=== PATIENT | female | born 1955 | race Caucasian/White ===

== ENCOUNTER 2018-02-14 15:16 | Inpatient (IN) | payer BC, OTHER ==
[2018-02-14] MEDS ORDERED: ONDANSETRON HCL INJ/PF 4 MG/2 ML SDV IV ONE (15:54)
[2018-02-14] MEDS ORDERED: NORMAL SALINE 1000 ML 1,000 ML IV ONE ×2 (15:54→17:02)
--- NOTE | 2018-02-14 15:57 | ER Document Report ---
ED Medical Screen (RME) - General Chief Complaint: Nausea/Vomiting/Diarrhea Stated Complaint: FLU LIKE SYMPTOMS Time Seen by Provider: 02/14/18 15:46 Information source: Patient Notes: 62 y.o female presents to the ED with N/V/D, chills and sweats since 02/09/18. She notes abd pain when vomiting. Pt also complains of CP and palpitations, bilateral flank pain. She denies any dysuria or blood in stool. Pt reports taking Imodium. I have greeted and performed a rapid initial assessment of the patient. A comprehensive ED assessment and evaluation of the patient, analysis of test results, and completion of the medical decision making process will be conducted by additional ED providers. TRAVEL OUTSIDE OF THE [place] IN LAST 30 DAYS: No - Related Data Allergies/Adverse Reactions: ciprofloxacin Adverse Reaction (Severe, Verified 02/14/18 15:38) GI upset meperidine [From Demerol] Adverse Reaction (Intermediate, Verified 02/14/18 15: 37) Dystonia Past Medical History - General Information source: Patient - Social History Chew tobacco use (# tins/day): No Frequency of alcohol use: Social Drug Abuse: None Renal/ Medical History: Denies: Hx Peritoneal Dialysis Review of Systems - Review of Systems Constitutional: See HPI, Chills, Diaphoresis Cardiovascular: See HPI, Chest pain, Palpitations Gastrointestinal: See HPI, Abdominal pain, Diarrhea, Nausea, Vomiting. denies: Blood streaked bowels, Black stools, Rectal bleeding Genitourinary: See HPI, Flank pain. denies: Dysuria Physical Exam - Vital signs Vitals: Temp Pulse Resp BP Pulse Ox 98.2 F 134 H 20 147/95 H 96 02/14/18 15:28 02/14/18 15:28 02/14/18 15:28 02/14/18 15:28 02/14/18 15:28 - Notes Notes: Physical Exam: General: Alert, appears well. HEENT: Normocephalic. Atraumatic. PERRLA. Extraocular movements intact. Oropharynx clear. Dry mucus membrane. Neck: Supple. Respiratory: No respiratory distress. Cardiovascular: Tachycardic rate, regular rhythm. Abdominal: Normal Inspection. No distension. Extremities: Moves all four extremities. Neurological: Normal cognition. AAOx4. Normal speech. Psychological: Normal affect. Normal Mood. Skin: Warm. Dry. Normal color. Course - Vital Signs Vital signs: Temp Pulse Resp BP Pulse Ox 98.2 F 134 H 20 147/95 H 96 02/14/18 15:28 02/14/18 15:28 02/14/18 15:28 02/14/18 15:28 02/14/18 15:28 Scribe Documentation - Scribe Written by Scribe:: Shadi Simons 02/14/18 [id number] acting as scribe for :: Alex
--- NOTE | 2018-02-14 16:27 | ER Document Report ---
ED General - General Chief Complaint: Nausea/Vomiting/Diarrhea Stated Complaint: FLU LIKE SYMPTOMS Time Seen by Provider: 02/14/18 15:46 Mode of Arrival: Ambulatory Information source: Patient Notes: 62 yo female lives alone with HTN, hyperlipedemia, quit smoking 10 years ago, non dm, IBS, anxiety. Reason she came today bc she thought she was going to , "my heart hurts" (left chest) intermittent for hour or 2- it is constant sharp , no aggrevating or alleviating for 2 days and "kidney's are hurting." c/o vomiting, diarrhea, chills, sweats, generalized aches, no energy since friday night. Black diarrhea, no hematemesis. No cough or congestion. Fever off and on. No dysuria, only urinated 3 times since friday. no asa or meds since last friday. No abd. pain. Abd. surgery: john, 3 bladder tacks. took kaopectate ( can turn stools black). Diverticula found on colonoscopy-6 weeks ago (dr. zoraida toth). No hx c diff. Drinks 3-4 beers per night. Pt has not taken her meds all week. TRAVEL OUTSIDE OF THE [place] IN LAST 30 DAYS: No - Related Data Allergies/Adverse Reactions: ciprofloxacin Adverse Reaction (Severe, Verified 02/14/18 15:38) GI upset meperidine [From Demerol] Adverse Reaction (Intermediate, Verified 02/14/18 15: 37) Dystonia Past Medical History - General Information source: Patient - Social History Smoking Status: Former Smoker Chew tobacco use (# tins/day): No Frequency of alcohol use: Social Drug Abuse: None Lives with: Family Family History: DM, Hypertension Patient has suicidal ideation: No Patient has homicidal ideation: No - Past Medical History Cardiac Medical History: Reports: Hx Hypercholesterolemia, Hx Hypertension Renal/ Medical History: Denies: Hx Peritoneal Dialysis GI Medical History: Reports: Hx Diverticulitis - diverticula Review of Systems - Review of Systems Constitutional: See HPI EENT: No symptoms reported Cardiovascular: See HPI Respiratory: No symptoms reported Gastrointestinal: See HPI Genitourinary: No symptoms reported Female Genitourinary: No symptoms reported Musculoskeletal: See HPI Skin: No symptoms reported Hematologic/Lymphatic: No symptoms reported Neurological/Psychological: No symptoms reported Physical Exam - Vital signs Vitals: Temp Pulse Resp BP Pulse Ox 98.2 F 134 H 20 147/95 H 96 02/14/18 15:28 02/14/18 15:28 02/14/18 15:28 02/14/18 15:28 02/14/18 15:28 Interpretation: Normal - General General appearance: Alert, Anxious - HEENT Head: Normocephalic, Atraumatic Eyes: Normal Conjunctiva: Normal Pupils: PERRL Mucous membranes: Dry Neck: Supple. No: Lymphadenopathy - Respiratory Respiratory status: No respiratory distress Chest status: Tender - right and left mid anterior chest Breath sounds: Normal, Other - occasional cough. Chest palpation: Normal - Cardiovascular Rhythm: Regular Heart sounds: Normal auscultation Murmur: No - Abdominal Inspection: Normal Distension: No distension Bowel sounds: Normal Tenderness: Tender - low abdomen all the way across Organomegaly: No organomegaly - Back Back: Normal, Nontender. No: CVA tenderness - Extremities General upper extremity: Normal inspection, Nontender, Normal color, Normal ROM , Normal temperature General lower extremity: Normal inspection, Nontender, Normal color, Normal ROM , Normal temperature, Normal weight bearing. No: Hugo's sign - Neurological Neuro grossly intact: Yes Cognition: Normal Orientation: AAOx4 Archie Coma Scale Eye Opening: Spontaneous Archie Coma Scale Verbal: Oriented Archie Coma Scale Motor: Obeys Commands [place] Coma Scale Total: 15 Speech: Normal Motor strength normal: LUE, RUE, LLE, RLE Sensory: Normal - Psychological Associated symptoms: Normal affect, Normal mood - Skin Skin Temperature: Warm Skin Moisture: Dry Skin Color: Normal Course - Re-evaluation Re-evalutation: 02/14/18 17:02 cipro gives her heartburn. 02/14/18 19:13 Patient is drinking joe marry and eating crackers. She no longer has chest pain or abdominal pain. Her abdomen CT was negative for inflammation or diverticulitis. Her troponin was negative. I discussed this case with Dr. elbert Bernabe RN states that with the original EKG of sinus tachycardia at the rate of [address] depression in aVL, V1 V3 V4 V5 and that her heart score is 5. I will be repeating EKG and getting another troponin. Dr. boswell states that the patient needs to be admitted. 02/14/18 19:[address] Mcmillan for admission and he states that he will admit her for telemetry observation if the second troponin is negative. I will transfer care to [facility] family nurse practitioner. Add TSH and give lopressor 5mg IV. 02/14/18 19:24 02/14/18 19:40 care transferred to [facility] at the bedside. She is stating that she has dull left chest pain 2/5, will add NTG. 02/14/18 19:42 2nd EKG still shows depressed T waves as the first but not as sever. Dr. bynum evaluated the 2 ekg's. - Vital Signs Vital signs: Temp Pulse Resp BP Pulse Ox 98.2 F 134 H 18 150/68 H 98 02/14/18 15:28 02/14/18 15:28 02/14/18 17:30 02/14/18 17:30 02/14/18 17:30 - Laboratory Result Diagrams: 02/14/18 16:12 02/14/18 16:12 Laboratory results interpreted by me: 02/14/18 02/14/18 02/14/18 16:12 16:12 17:08 Hgb 16.2 H Sodium 135.9 L Chloride 97 L Glucose 127 H Direct Bilirubin 0.6 H AST 114 H ALT 109 H Urine Protein >=500 H Urine Ketones 20 H Urine Urobilinogen 2.0 H
[2018-02-14 16:31] LABS: ABSOLUTE LYMPHOCYTES (AUTO) 0.9 10^3/uL (0.5-4.7); ABSOLUTE MONOCYTES (AUTO) 0.6 10^3/uL (0.1-1.4); BASOPHILS % (AUTO) 0.3 % (0-2); EOSINOPHILS % (AUTO) 0.1 % (0-6); HEMATOCRIT 45.6 % (36.0-47.0); HEMOGLOBIN 16.2 g/dL (12.0-15.5); MEAN CORPUSCULAR HEMOGLOBIN 32.6 pg (27.0-33.4); MEAN CORPUSCULAR HGB CONC 35.4 g/dL (32.0-36.0); MEAN CORPUSCULAR VOLUME 92 fl (80-97); MONOCYTES % (AUTO) 11.1 % (3-13); PLATELET COUNT 157 10^3/uL (150-450); RED BLOOD COUNT 4.97 10^6/uL (3.72-5.28); RED CELL DISTRIBUTION WIDTH 12.3 % (11.5-14.0); SEGMENTED NEUTROPHILS % (AUTO) 71.5 % (42-78); TOTAL CELLS COUNTED % (AUTO) 100 %; WHITE BLOOD COUNT 5.6 10^3/uL (4.0-10.5)
[2018-02-14] MEDS ORDERED: ASPIRIN 81 MG TABLET, CHEWABLE PO ONE (16:50)
[2018-02-14 17:07] LABS: ALANINE AMINOTRANSFERASE 109 U/L (9-52); ALBUMIN 4.8 g/dL (3.5-5.0); ALKALINE PHOSPHATASE 92 U/L (38-126); ANION GAP 17 (5-19); ASPARTATE AMINO TRANSFERASE 114 U/L (14-36); BILIRUBIN,DIRECT 0.6 mg/dL (0.0-0.4); BILIRUBIN,TOTAL 0.8 mg/dL (0.2-1.3); BLOOD UREA NITROGEN 18 mg/dL (7-20); CALCIUM 9.8 mg/dL (8.4-10.2); CARBON DIOXIDE 22 mmol/L (22-30); CHLORIDE 97 mmol/L (98-107); GLUCOSE 127 mg/dL (75-110); LIPASE 195.3 U/L (23-300); POTASSIUM 3.7 mmol/L (3.6-5.0); SODIUM 135.9 mmol/L (137-145)
[2018-02-14 17:36] LABS: APPEARANCE,URINE SLIGHTLY-CLOUDY; BILIRUBIN,URINE NEGATIVE (NEGATIVE); COLOR,URINE AMBER; GLUCOSE, URINE NEGATIVE (NEGATIVE); KETONES,URINE 20 mg/dL (NEGATIVE); LEUKOCYTE ESTERASE,URINE NEGATIVE (NEGATIVE); NITRITE,URINE NEGATIVE (NEGATIVE); PROTEIN,URINE >=500 mg/dL (NEGATIVE); URINE SPECIFIC GRAVITY 1.024
--- NOTE | 2018-02-14 17:39 | RADIOLOGY REPORT (SQ) ---
EXAM DESCRIPTION: CHEST SINGLE VIEW COMPLETED DATE/TIME: 02/14/2018 5:27 pm REASON FOR STUDY: fever, chest pain COMPARISON: None. NUMBER OF VIEWS: One view. TECHNIQUE: Single frontal radiographic view of the chest acquired. LIMITATIONS: None. FINDINGS: LUNGS AND PLEURA: No opacities, masses or pneumothorax. No pleural effusion. Attenuated bl ood vessels and flattened corinna-diaphragms. MEDIASTINUM AND HILAR STRUCTURES: No masses. Contour normal. HEART AND VASCULAR STRUCTURES: Heart normal in size. Normal vasculature. BONES: No acute findings. HARDWARE: None in the chest. OTHER: No other significant finding. IMPRESSION: COPD. NO ACUTE RADIOGRAPHIC FINDING IN THE CHEST. TECHNICAL DOCUMENTATION: JOB ID: [id number] [employer]- All Rights Reserved Reading location - IP/workstation name: [email or web address]
--- NOTE | 2018-02-14 18:07 | RADIOLOGY REPORT (SQ) ---
EXAM DESCRIPTION: CT ABD/PELVIS WITH IV ONLY COMPLETED DATE/TIME: 02/14/2018 5:45 pm REASON FOR STUDY: low abd tenderness COMPARISON: None. TECHNIQUE: CT scan of the abdomen and pelvis performed using helical scanning technique with dynamic intravenous contrast injection. No oral contrast. Images reviewed with lung, soft tissue, and bone windows. Reconstructed coronal and sagittal MPR images reviewed. Delayed images for evaluation of the urinary system also acquired. All images stored on PACS. All CT scanners at this facility use dose modulation, iterative reconstruction, and/or weight based d osing when appropriate to reduce radiation dose to as low as reasonably achievable (ALARA). [facility]: Dose Right [facility]: CareDose [facility]: Dose Right [facility]: Teradose 4D [facility]: [employer] CONTRAST TYPE AND DOSE: contrast/concentration: Isovue 370.00 mg/ml; Total Contrast Delivered: 80.0 ml; Total Saline Delivered: 68.0 ml RENAL FUNCTION: Creatinine 0.60 RADIATION DOSE: CT Rad equipment meets quality standard of care and radiation dose reduction techniq ues were employed. CTDIvol: 10.1 - 14.5 mGy. DLP: 1260 mGy-cm.. LIMITATIONS: None. FINDINGS: LOWER CHEST: No significant findings. No nodules or infiltrates. LIVER: There is diffuse decreased attenuation, most consistent with fatty infiltration. No masses. N o dilated ducts. SPLEEN: Normal size. No focal lesions. PANCREAS: No significant calcifications. No adjacent inflammation or peripancreatic fluid collections . Pancreatic duct not dilated. GALLBLADDER: Surgically absent. ADRENAL GLANDS: No significant masses or asymmetry. RIGHT KIDNEY AND URETER: No solid masses. Nonobstructing 3 mm calculus at the right kidney. No hy dronephrosis or hydroureter. LEFT KIDNEY AND URETER: No solid masses. No significant calcifications. No hydronephrosis or hydr oureter. AORTA AND VESSELS: No abdominal aortic aneurysm. RETROPERITONEUM: No retroperitoneal adenopathy, hemorrhage or masses. BOWEL AND PERITONEAL CAVITY: No dilated bowel loops or inflammatory changes. No free fluid or free ai r. APPENDIX: Surgically absent. PELVIS: No mass. No free fluid. The urinary bladder is partially distended. ABDOMINAL WALL: No hernias. BONES: Degenerative changes in the spine. IMPRESSION: 1. No acute findings. 2. Fatty infiltration of the liver. 3. Nonobstructing right nephrolithiasis. TECHNICAL DOCUMENTATION: JOB ID: [id number] [facility] Quality ID # [id number]: Final reports with documentation of one or more dose reduction techniques (e.g., Au tomated exposure control, adjustment of the mA and/or kV according to patient size, use of iterative reconstruction technique) 2010 [employer]- All Rights Reserved Reading location - IP/workstation name: [email or web address]
[2018-02-14] MEDS ORDERED: METOPROLOL TARTRATE PF/INJ 5 MG/5 ML SDV IV ONE (19:24)
[2018-02-14] MEDS ORDERED: NITROGLYCERIN 0.4 MG/TAB 25 TAB/BOTTLE SL PRN ×2 (19:42→20:42)
[2018-02-14] MEDS ORDERED: ESCITALOPRAM OXALATE 10 MG TABLET PO ONE (19:48)
[2018-02-14] MEDS ORDERED: ACETAMINOPHEN 325 MG TABLET PO ONE (20:28)
[2018-02-14] MEDS ORDERED: NITROGLYCERIN 2% OINTMENT 1 GM PACKET TP ONE (20:28)
[2018-02-14] MEDS ORDERED: DIPHENOXYLATE HCL/ATROP SULF 2.5-0.025 MG TABLET PO ONE (20:54)
[2018-02-14] MEDS ORDERED: ESCITALOPRAM OXALATE 10 MG TABLET ONE (21:09)
[2018-02-14] MEDS ORDERED: ATENOLOL 50 MG TABLET PO SCH (22:00)
[2018-02-14] MEDS: DICYCLOMINE HCL 20 MG TABLET PO PRN (22:02)
[2018-02-14] MEDS: HEPARIN SOD (PORCINE) 5,000 UNIT/ML 1 ML SYRINGE SUBCUT SCH (22:03)
--- NOTE | 2018-02-14 23:50 | EKG REPORT ---
SEVERITY:- ABNORMAL ECG - SINUS OR ECTOPIC ATRIAL TACHYCARDIA NONSPECIFIC REPOL ABNORMALITY, DIFFUSE LEADS BORDERLINE PROLONGED QT INTERVAL : Confirmed by: Garrick Paul MD 14-Feb-2018 23:50:26
--- NOTE | 2018-02-14 23:52 | EKG REPORT ---
SEVERITY:- ABNORMAL ECG - SINUS OR ECTOPIC ATRIAL TACHYCARDIA REPOL ABNRM SUGGESTS ISCHEMIA, DIFFUSE LEADS MINIMAL ST ELEVATION, INFERIOR LEADS CLINICAL CORRELATION MUCH NEEDED, SERIAL EKG TO ASSESS SIGNIFICANCE. : Confirmed by: Garrick Paul MD 14-Feb-2018 23:51:58
--- NOTE | 2018-02-15 06:06 | PDOC H&P ---
History of Present Illness Admission Date/PCP: 02/14/18 20:51 Patient complains of: Chest pain History of Present Illness: YVROSE CHAN is a 62 year old female with a past medical history of anxiety, irritable bowel syndrome, hypertension and dyslipidemia. Patient following 1 week of nausea vomiting of gastric content, diarrhea without blood and fatigue. Patient denies suspect meals or infectious contacts, no episodes of either while in the emergency room. Patient has an unremarkable workup then reveals left-sided chest pain which is reproducible to palpation of the chest wall, cardiac workup is unremarkable but she is referred to the hospitalist for evaluation given cardiac risks. Patient states her chest pain is dull in nature and reproduced by rubbing the chest wall, no palpitations, diaphoresis or shortness of breath. It is achy in nature and nonradiating with a 2 out of 5 intensity. Patient denies alleviating factors. She denies cardiac stress testing. Past Medical History Cardiac Medical History: Reports: Hyperlipidema, Hypertension GI Medical History: Reports: Diverticulitis - diverticula Social History Information Source: Patient Lives with: Family Smoking Status: Former Smoker Frequency of Alcohol Use: None Hx Recreational Drug Use: No - Advance Directive Resuscitation Status: Full Code Family History Family History: DM, Hypertension, Malignancy - Mother and father with lung cancer Parental Family History Reviewed: Yes Children Family History Reviewed: Yes Sibling(s) Family History Reviewed.: Yes Medication/Allergy Home Medications: Aspirin [Aspirin EC] 81 mg PO DAILY 02/14/18 Atenolol [Tenormin] 25 mg PO DAILY 02/14/18 Atorvastatin Calcium [Lipitor 10 mg Tablet] 10 mg PO DAILY 02/14/18 Escitalopram Oxalate [Lexapro 10 mg Tablet] 10 mg PO DAILY 02/14/18 Esomeprazole Mag Trihydrate [Nexium] 40 mg PO BID 02/14/18 Hyoscyamine Sulfate [Hyoscyamine Sulfate ER] 2 tab PO DAILY 02/14/18 Multivit with Iron,Minerals [Spectravite Senior] 1 tab PO DAILY 02/14/18 Prochlorperazine Maleate [Compazine] 10 - 20 mg PO DAILY PRN 02/14/18 Vit C/Vit E AC/Lut/Copper/Zinc [Preservision Lutein Softgel] 1 cap PO DAILY Allergies/Adverse Reactions: ciprofloxacin Adverse Reaction (Severe, Verified 02/14/18 15:38) GI upset meperidine [From Demerol] Adverse Reaction (Intermediate, Verified 02/14/18 15: 37) Dystonia Review of Systems Constitutional: PRESENT: as per HPI, anorexia, fatigue. ABSENT: fever(s) Eyes: ABSENT: visual disturbances Ears: ABSENT: hearing changes Cardiovascular: ABSENT: chest pain, dyspnea on exertion, edema, orthropnea, palpitations Respiratory: ABSENT: cough, hemoptysis Gastrointestinal: PRESENT: as per HPI, bloating, constipation, diarrhea, heartburn, nausea, vomiting Genitourinary: ABSENT: dysuria, hematuria Musculoskeletal: ABSENT: joint swelling Integumentary: ABSENT: rash, wounds Neurological: ABSENT: abnormal gait, abnormal speech, confusion, dizziness, focal weakness, syncope Psychiatric: ABSENT: anxiety, depression, homidical ideation, suicidal ideation Endocrine: ABSENT: cold intolerance, heat intolerance, polydipsia, polyuria Hematologic/Lymphatic: ABSENT: easy bleeding, easy bruising Physical Exam Vital Signs: Temp Pulse Resp BP Pulse Ox 98.6 F 134 H 17 109/51 L 95 02/15/18 05:49 02/14/18 15:28 02/15/18 05:00 02/15/18 05:00 02/15/18 05:00 General appearance: PRESENT: no acute distress, well-developed, well-nourished Head exam: PRESENT: atraumatic, normocephalic Eye exam: PRESENT: conjunctiva pink, EOMI, PERRLA. ABSENT: scleral icterus Ear exam: PRESENT: normal external ear exam Mouth exam: PRESENT: moist, tongue midline Neck exam: ABSENT: carotid bruit, JVD, lymphadenopathy, thyromegaly Respiratory exam: PRESENT: clear to auscultation caroline. ABSENT: rales, rhonchi, wheezes Cardiovascular exam: PRESENT: RRR. ABSENT: diastolic murmur, rubs, systolic murmur Pulses: PRESENT: normal dorsalis pedis pul Vascular exam: PRESENT: normal capillary refill GI/Abdominal exam: PRESENT: normal bowel sounds, soft. ABSENT: distended, guarding, mass, organolmegaly, rebound, tenderness Rectal exam: PRESENT: deferred Extremities exam: PRESENT: full ROM. ABSENT: calf tenderness, clubbing, pedal edema Neurological exam: PRESENT: alert, awake, oriented to person, oriented to place , oriented to time, oriented to situation, CN II-XII grossly intact. ABSENT: motor sensory deficit Psychiatric exam: PRESENT: appropriate affect, normal mood. ABSENT: homicidal ideation, suicidal ideation Skin exam: PRESENT: dry, intact, warm. ABSENT: cyanosis, rash Results Impressions: Chest X-Ray 02/14/18 16:43 IMPRESSION: COPD. NO ACUTE RADIOGRAPHIC FINDING IN THE CHEST. Abdomen/Pelvis CT 02/14/18 16:56 IMPRESSION: 1. No acute findings. 2. Fatty infiltration of the liver. 3. Nonobstructing right nephrolithiasis. Assessment & Plan - Diagnosis (1) Gastroenteritis Is this a current diagnosis for this admission?: Yes Plan: Labs are unremarkable symptoms have subsided, symptomatic and supportive measures (2) Atypical chest pain Is this a current diagnosis for this admission?: Yes Plan: Atypical chest pain though the patient's pain is atypical there are multiple risk factors for coronary artery disease and subsequently will observe and evaluation of acute coronary syndrome versus coronary artery disease with anginal equivalents. Cardiac monitoring blood pressure Q6 hours ,TSH, lipid profile, serial cardiac enzymes and cardiac stress test - Time Time Spent: 30 to 50 Minutes
[2018-02-15] MEDS: HEPARIN SOD (PORCINE) 5,000 UNIT/ML 1 ML SYRINGE SUBCUT SCH ×3 (06:39→21:35)
[2018-02-15 06:58] LABS: CREATINE KINASE MB 0.25 ng/mL (<4.55); TROPONIN I 0.022 ng/mL
[2018-02-15 07:22] LABS: CHOLESTEROL 115.41 mg/dL (0-200); CREATINE KINASE 66 U/L (30-135); TRIGLYCERIDES 93 mg/dL (<150)
[2018-02-15 07:32] LABS: DIRECT LDL 63 mg/dL (<100)
--- NOTE | 2018-02-15 09:14 | PROGRESS NOTE E ---
Progress Note NAME: YVROSE CHAN : 1955 AGE: 62Y DATE: 02/15/2018 ROOM: ED06 SUBJECTIVE: The patient is a 62-year-old with a past medical history of anxiety, irritable bowel syndrome, hypertension, dyslipidemia. The patient admitted with nausea, vomiting, diarrhea. She had multiple bowel movements yesterday around 4:00 by loose stool. She vomited 3 or 4 times. She does not have any fever or chills. No abdominal pain. She had a CT scan of abdomen which was unremarkable. There is no fever. No leukocytosis. OBJECTIVE: The patient when she came also blood pressure was running low and she received 2 boluses of normal saline. When I saw her today her blood pressure is 120/60. PHYSICAL EXAMINATION: GENERAL: The patient is lying in bed, comfortable, not in distress. VITAL SIGNS: Blood pressure is 120/60, heart rate 78, temperature 98.6, saturation is 94%, respiratory rate 20. HEENT: Normocephalic, atraumatic. Pupils are round and reactive to light and accommodation bilaterally. Extraocular movements intact. Ears: Tympanic membranes intact bilaterally. No discharge from the ears. No discharge from the nose. NECK: Supple. No increased JVD. No thyromegaly. No lymphadenopathy. CARDIOVASCULAR: Normal S1 and S2. Regular rate and rhythm. No murmur. No gallop. RESPIRATORY: Lungs clear. ABDOMEN: Soft and nontender. MUSCULOSKELETAL: No edema. NEUROLOGIC: Awake, alert. SKIN: No rash. LABORATORY: White blood count 5.6, hemoglobin 16. Sodium 136, potassium 3.7, carbon dioxide 22. ASSESSMENT: 1. NAUSEA, VOMITING, DIARRHEA PROBABLY GASTROENTERITIS. 2. ATYPICAL CHEST PAIN. 3. HYPERTENSION AND ANXIETY. 4. HISTORY OF IRRITABLE BOWEL SYNDROME. 5. DYSLIPIDEMIA. 6. HYPOTENSION, RESOLVED. PLAN: Will continue fluid resuscitation with normal saline 100 mL per hour. Will start her on clear liquid diet. Send the stool for analysis. DISPOSITION: Probably discharge home tomorrow if stable. She also had chest pain and the patient waiting for stress test to be done tomorrow. DICTATING PHYSICIAN: HEIDE BABB M.D. [id number] [facility]#: [id number] ID: [id number] JOB#: [id number] ACCT: [id number] cc: > MTDD
[2018-02-15] MEDS: ATENOLOL 50 MG TABLET PO SCH (09:32)
[2018-02-15] MEDS: ESCITALOPRAM OXALATE 10 MG TABLET PO SCH (09:33)
[2018-02-15] MEDS: LANSOPRAZOLE 30 MG TAB.RAP.DR PO SCH ×2 (09:33→20:24)
[2018-02-15] MEDS: DOCUSATE SODIUM 100 MG CAPSULE PO SCH ×2 (09:34→20:25)
[2018-02-15] MEDS: ASPIRIN 81 MG TABLET, ENT COATED PO SCH (09:34)
[2018-02-15] MEDS: DICYCLOMINE HCL 20 MG TABLET PO PRN ×2 (09:34→20:25)
[2018-02-15] MEDS ORDERED: ASPIRIN 81 MG TABLET, ENT COATED PO SCH (10:00)
[2018-02-15] MEDS: NORMAL SALINE 1000 ML 1,000 ML IV PRN ×2 (11:52→21:42)
[2018-02-15] MEDS: ATORVASTATIN CALCIUM 10 MG TABLET PO SCH (21:34)
[2018-02-15] MEDS: ACETAMINOPHEN 325 MG TABLET PO PRN (21:35)
[2018-02-16] MEDS: HEPARIN SOD (PORCINE) 5,000 UNIT/ML 1 ML SYRINGE SUBCUT SCH ×3 (06:55→22:32)
[2018-02-16 07:27] LABS: ABSOLUTE LYMPHOCYTES (AUTO) 1.3 10^3/uL (0.5-4.7); ABSOLUTE MONOCYTES (AUTO) 0.4 10^3/uL (0.1-1.4); ABSOLUTE NEUT (AUTO) 1.7 10^3/uL (1.7-8.2); BASOPHILS % (AUTO) 0.6 % (0-2); HEMATOCRIT 32.3 % (36.0-47.0); LYMPHOCYTES % (AUTO) 38.5 % (13-45); MEAN CORPUSCULAR HEMOGLOBIN 32.3 pg (27.0-33.4); MEAN CORPUSCULAR HGB CONC 35.1 g/dL (32.0-36.0); MEAN CORPUSCULAR VOLUME 92 fl (80-97); MONOCYTES % (AUTO) 11.2 % (3-13); PLATELET COUNT 106 10^3/uL (150-450); RED BLOOD COUNT 3.52 10^6/uL (3.72-5.28); RED CELL DISTRIBUTION WIDTH 12.2 % (11.5-14.0); SEGMENTED NEUTROPHILS % (AUTO) 49.7 % (42-78); TOTAL CELLS COUNTED % (AUTO) 100 %; WHITE BLOOD COUNT 3.5 10^3/uL (4.0-10.5)
[2018-02-16 07:41] LABS: ANION GAP 8 (5-19); BLOOD UREA NITROGEN 6 mg/dL (7-20); CALCIUM 7.9 mg/dL (8.4-10.2); CARBON DIOXIDE 26 mmol/L (22-30); CHLORIDE 106 mmol/L (98-107); GLUCOSE 92 mg/dL (75-110); HEMOGLOBIN 11.4 g/dL (12.0-15.5); SODIUM 139.5 mmol/L (137-145)
[2018-02-16 08:12] LABS: POTASSIUM 2.9 mmol/L (3.6-5.0)
[2018-02-16] MEDS ORDERED: POTASSIUM CHLORIDE 20 MEQ/15 ML UDCUP PO ONE (08:15)
[2018-02-16] MEDS ORDERED: POTASSIUM CHLORIDE 10 MEQ TABLET.SA PO ONE (09:00)
[2018-02-16] MEDS: ASPIRIN 81 MG TABLET, ENT COATED PO SCH (09:36)
[2018-02-16] MEDS: ACETAMINOPHEN 325 MG TABLET PO PRN (09:36)
[2018-02-16] MEDS: ESCITALOPRAM OXALATE 10 MG TABLET PO SCH (09:37)
[2018-02-16] MEDS: LANSOPRAZOLE 30 MG TAB.RAP.DR PO SCH ×2 (09:37→17:23)
[2018-02-16] MEDS: DOCUSATE SODIUM 100 MG CAPSULE PO SCH (09:43)
[2018-02-16] MEDS: ATENOLOL 50 MG TABLET PO SCH (11:32)
--- NOTE | 2018-02-16 18:03 | PDOC PROGRESS REPORT ---
Subjective Progress Note for:: 02/16/18 Subjective:: YVROSE CHAN is a 62 year old female admitted for nausea and vomiting and diarrhea. Patient reports she was experiencing diarrhea for approximately 1 week prior to admission, she presented to the emergency department when she began developing vomiting. CT of the abdomen unremarkable. Patient seen this morning on rounds, she denies abdominal pain, fever or chills. She states she has not had an episode of vomiting in 2 days. She endorses multiple loose liquid stools, approximately 4-6 per day. Reason For Visit: CHEST PAIN HTN TACHYCARDIA ANXIETY IBS Physical Exam Vital Signs: Temp Pulse Resp BP Pulse Ox 98.2 F 70 16 124/63 98 02/16/18 15:51 02/16/18 15:51 02/16/18 15:51 02/16/18 15:51 02/16/18 15:51 Intake & Output 02/15/18 02/16/18 02/17/18 06:59 06:59 06:59 Intake Total 175 768 Output Total 50 Balance 175 718 Weight 79.5 kg General appearance: PRESENT: no acute distress Head exam: PRESENT: atraumatic Eye exam: PRESENT: conjunctiva pink Mouth exam: PRESENT: moist Neck exam: PRESENT: full ROM Respiratory exam: PRESENT: clear to auscultation caroline, symmetrical, unlabored Cardiovascular exam: PRESENT: +S1, +S2 Pulses: PRESENT: normal radial pulses, normal dorsalis pedis pul GI/Abdominal exam: PRESENT: normal bowel sounds, soft. ABSENT: tenderness Rectal exam: PRESENT: deferred Extremities exam: PRESENT: full ROM Musculoskeletal exam: PRESENT: full ROM Neurological exam: PRESENT: alert, awake, oriented to person, oriented to place , oriented to time, oriented to situation Psychiatric exam: PRESENT: appropriate affect Results Laboratory Results: 02/16/18 06:39 02/16/18 06:39 02/16/18 02/16/18 06:39 06:39 WBC 3.5 L RBC 3.52 L Hgb 11.4 L D Hct 32.3 L MCV 92 MCH 32.3 MCHC 35.1 RDW 12.2 Plt Count 106 L Seg Neutrophils % 49.7 Lymphocytes % 38.5 Monocytes % 11.2 Eosinophils % 0.0 Basophils % 0.6 Absolute Neutrophils 1.7 Absolute Lymphocytes 1.3 Absolute Monocytes 0.4 Absolute Eosinophils 0.0 Absolute Basophils 0.0 Sodium 139.5 Potassium 2.9 L* Chloride 106 Carbon Dioxide 26 Anion Gap 8 BUN 6 L Creatinine 0.44 L Est GFR ( Amer) > 60 Est GFR (Non-Af Amer) > 60 Glucose 92 Calcium 7.9 L 02/15/18 02/15/18 05:48 05:48 Creatine Kinase 66 CK-MB (CK-2) 0.25 Troponin I 0.022 Impressions: Chest X-Ray 02/14/18 16:43 IMPRESSION: COPD. NO ACUTE RADIOGRAPHIC FINDING IN THE CHEST. Abdomen/Pelvis CT 02/14/18 16:56 IMPRESSION: 1. No acute findings. 2. Fatty infiltration of the liver. 3. Nonobstructing right nephrolithiasis. Assessment & Plan - Diagnosis (1) Gastroenteritis Is this a current diagnosis for this admission?: Yes Plan: Patient presented with approximately 1 week of nausea vomiting diarrhea. At this time, the nausea and vomiting has resolved. However, the patient endorses 4-6 episodes of liquid stool per day. Hemoccult negative. C. difficile negative. Rare WBC found in stool - benign finding. Patient denies taking any new medications. Denies ill contacts. CT abdomen and pelvis benign. Continue supportive care with normal saline 100ml/hr Advance clear liquid diet. (2) Atypical chest pain Is this a current diagnosis for this admission?: Yes Plan: Patient reported experiencing chest pain upon arrival. EKG normal. Serial cardiac enzymes benign. Patient was chest pain-free for greater than 24 hours, however, began experiencing chest pain again while undergoing her stress test today. Cardiology has been consulted. Stress test rescheduled for tomorrow. Echocardiogram ordered. Continue aspirin therapy. PRN SL Nitro for chest pain - Time Time Spent with patient: 15-24 minutes Smoking Cessation Education: 3 to 10 minutes Anticipated discharge: Home Within: within 24 hours, within 48 hours - Inpatient Certification Based on my medical assessment, after consideration of the patient's comorbidities, presenting symptoms, or acuity I expect that the services needed warrant INPATIENT care.: Yes I certify that my determination is in accordance with my understanding of Medicare's requirements for reasonable and necessary INPATIENT services [42 CFR 412.3e].: Yes Medical Necessity: Need For IV Fluids, Risk of Complication if Not Cared For in Hospital - Plan Summary Plan Summary: Ultimately, the plan is to discharge the patient within 24-48 hours
[2018-02-16] MEDS: ATORVASTATIN CALCIUM 10 MG TABLET PO SCH (22:32)
[2018-02-17] MEDS: HEPARIN SOD (PORCINE) 5,000 UNIT/ML 1 ML SYRINGE SUBCUT SCH ×3 (05:53→21:27)
[2018-02-17 09:07] LABS: ABSOLUTE LYMPHOCYTES (AUTO) 1.3 10^3/uL (0.5-4.7); ABSOLUTE MONOCYTES (AUTO) 0.5 10^3/uL (0.1-1.4); ABSOLUTE NEUT (AUTO) 3.5 10^3/uL (1.7-8.2); BASOPHILS % (AUTO) 0.5 % (0-2); HEMATOCRIT 34.4 % (36.0-47.0); LYMPHOCYTES % (AUTO) 23.9 % (13-45); MEAN CORPUSCULAR HGB CONC 34.9 g/dL (32.0-36.0); MEAN CORPUSCULAR VOLUME 92 fl (80-97); MONOCYTES % (AUTO) 9.1 % (3-13); PLATELET COUNT 157 10^3/uL (150-450); RED BLOOD COUNT 3.75 10^6/uL (3.72-5.28); RED CELL DISTRIBUTION WIDTH 11.9 % (11.5-14.0); SEGMENTED NEUTROPHILS % (AUTO) 66.5 % (42-78); TOTAL CELLS COUNTED % (AUTO) 100 %; WHITE BLOOD COUNT 5.2 10^3/uL (4.0-10.5)
[2018-02-17 09:25] LABS: ANION GAP 10 (5-19); BLOOD UREA NITROGEN 3 mg/dL (7-20); CALCIUM 8.3 mg/dL (8.4-10.2); CARBON DIOXIDE 25 mmol/L (22-30); CHLORIDE 104 mmol/L (98-107); GLUCOSE 90 mg/dL (75-110); PHOSPHORUS 2.7 mg/dL (2.5-4.5); SODIUM 138.9 mmol/L (137-145)
--- NOTE | 2018-02-17 09:25 | PDOC CONSULTATION ---
Consultation Consult Date: 02/16/18 Attending physician:: KATARZYNA JONES Consult reason:: Palpitations, shortness of breath History of Present Illness Admission Date/PCP: 02/14/18 20:51 Patient complains of: Palpitations and shortness of breath History of Present Illness: YVROSE CHAN is a 62 year old female with a past medical history of anxiety, irritable bowel syndrome, hypertension and dyslipidemia. Patient following 1 week of nausea vomiting of gastric content, diarrhea without blood and fatigue. Patient denies suspect meals or infectious contacts, no episodes of either while in the emergency room. Patient has an unremarkable workup then reveals left-sided chest pain which is reproducible to palpation of the chest wall, cardiac workup is unremarkable but she is referred to the hospitalist for evaluation given cardiac risks. Patient states her chest pain is dull in nature and reproduced by rubbing the chest wall, no palpitations, diaphoresis or shortness of breath. It is achy in nature and nonradiating with a 2 out of 5 intensity. Patient denies alleviating factors. She denies cardiac stress testing. This history was reviewed and confirmed. Patient denies any exertional component to the chest pain. Patient did complain of having significant nausea and vomiting. Patient denied any prior history of heart problems, myocardial infarction, angina or congestive heart failure. Patient did have some troponin I drawn which were noted to be in the indeterminate range. I was therefore asked to evaluate patient. Past Medical History Cardiac Medical History: Reports: Hyperlipidema, Hypertension GI Medical History: Reports: Diverticulitis - diverticula Social History Information Source: Patient Lives with: Family Smoking Status: Former Smoker Frequency of Alcohol Use: Social Hx Recreational Drug Use: No Drugs: None Hx Prescription Drug Abuse: No - Advance Directive Resuscitation Status: Full Code Family History Family History: DM, Hypertension, Malignancy - Mother and father with lung cancer Parental Family History Reviewed: Yes Children Family History Reviewed: Yes Sibling(s) Family History Reviewed.: Yes Medication/Allergy Home Medications: Aspirin [Aspirin EC] 81 mg PO DAILY 02/14/18 Atenolol [Tenormin] 25 mg PO DAILY 02/14/18 Atorvastatin Calcium [Lipitor 10 mg Tablet] 10 mg PO DAILY 02/14/18 Escitalopram Oxalate [Lexapro 10 mg Tablet] 10 mg PO DAILY 02/14/18 Hyoscyamine Sulfate [Hyoscyamine Sulfate ER] 0.75 mg PO DAILY 02/14/18 Multivit with Iron,Minerals [Spectravite Senior] 1 tab PO DAILY 02/14/18 Prochlorperazine Maleate [Compazine] 20 mg PO DAILYP PRN 02/14/18 Vit C/Vit E AC/Lut/Copper/Zinc [Preservision Lutein Softgel] 1 cap PO DAILY Allergies/Adverse Reactions: ciprofloxacin Adverse Reaction (Severe, Verified 02/14/18 15:38) GI upset meperidine [From Demerol] Adverse Reaction (Intermediate, Verified 02/14/18 15: 37) Dystonia Review of Systems Review of Systems: Please see history of present illness and past medical history as wall. Constitutional: No fever or chills reported. Head : No recent chronic headaches, recent head injury. Eyes: No recent eye pain, diplopia, redness, discharge, acute visual changes. Ears: No recent chronic ear pain, acute hearing loss, ear discharge. Oral cavity: No recent ulcerations, bleeding, oral cavity discomfort. Neck: No recent acute neck pain reported. Hematologic: No recent easy bruising or bleeding or hematologic malignancy reported. Lymphatic: No recent lymphatic malignancy, chronic lymphadenopathy reported yet Cardiovascular system review: See history of present illness. Respiratory system review: No recent chronic cough, hemoptysis, blood clots in the lungs reported. Mild Shortness of breath on exertion Gastrointestinal system review: History of irritable bowel syndrome, occasional diarrhea, constipation, nausea vomiting etc. but denies hematemesis, melena, recent change in bowel habits. Genitourinary system review: No recent acute or chronic hematuria, flank pain, UTI etc. reported. Skin system review: Negative for any recent abnormal bruising, no rash, no pruritus reported. Neurologic: No prior history of strokes, mini strokes, seizure disorder. Psychologic: No history of major psychosis or major depression reported. Musculoskeletal: Minor aches and pains reported. No acute joint swelling reported. Endocrine: No recent polyuria, polydipsia, recent heat or cold intolerance. Physical Exam Vital Signs: Temp Pulse Resp BP Pulse Ox 98.2 F 94 16 124/63 98 02/16/18 15:51 02/16/18 19:00 02/16/18 15:51 02/16/18 15:51 02/16/18 15:51 Intake & Output 02/15/18 02/16/18 02/17/18 06:59 06:59 06:59 Intake Total 175 1250 Output Total 50 Balance 175 1200 Weight 79.5 kg Exam: GENERAL: well-nourished and in no acute distress. Alert and oriented x3 HEAD: Atraumatic, normocephalic. EYES: Pupils equal round and reactive to light, extraocular movements intact, sclera anicteric, conjunctiva are normal. ENT: TMs normal, nares patent, oropharynx clear without exudates. Moist mucous membranes. No oral ulcerations or bleeding gums noted NECK: supple without lymphadenopathy. Trachea is central. No cervical or axillary lymphadenopathy noted. Carotids are 2+, JVD WNL LUNGS: Respiration seems nonlabored, no significant accessory muscle action noted. Breath sounds clear to auscultation bilaterally and equal noted. No wheezes rales or rhonchi noted. No significant dullness noted on percussion. CHEST: Palpation of the chest wall shows no significant chest wall tenderness. No other significant abnormalities noted. HEART: [employer], No PSH, 1/6 WADE aortic area, 1/6 singh systolic murmur mitral area, no rubs, no gallops. ABDOMEN: Soft, no significant tenderness appreciated, normoactive bowel sounds. No guarding, no rebound. No rigidity noted . No masses appreciated. EXTREMITIES: Pedal pulses are 1-2+, no calf tenderness noted. No clubbing or cyanosis.trace to 1+ pedal edema noted NEUROLOGICAL: Focused neurological exam showed no significant neurologic deficit. Normal speech, no focal weakness appreciated. PSYCH: Normal mood, normal affect. Judgment and insight within normal limits. SKIN: No significant ecchymosis, skin is noted to be warm. MUSCULOSKELETAL EXAM: No significant acute joint swelling noted. Results Laboratory Results: 02/16/18 06:39 02/16/18 06:39 02/16/18 02/16/18 06:39 06:39 WBC 3.5 L RBC 3.52 L Hgb 11.4 L D Hct 32.3 L MCV 92 MCH 32.3 MCHC 35.1 RDW 12.2 Plt Count 106 L Seg Neutrophils % 49.7 Lymphocytes % 38.5 Monocytes % 11.2 Eosinophils % 0.0 Basophils % 0.6 Absolute Neutrophils 1.7 Absolute Lymphocytes 1.3 Absolute Monocytes 0.4 Absolute Eosinophils 0.0 Absolute Basophils 0.0 Sodium 139.5 Potassium 2.9 L* Chloride 106 Carbon Dioxide 26 Anion Gap 8 BUN 6 L Creatinine 0.44 L Est GFR ( Amer) > 60 Est GFR (Non-Af Amer) > 60 Glucose 92 Calcium 7.9 L 02/15/18 02/15/18 05:48 05:48 Creatine Kinase 66 CK-MB (CK-2) 0.25 Troponin I 0.022 EKG Comments: Admission EKG showed sinus tachycardia with ST-T wave changes, LVH versus ischemia versus rate related. Impressions: Chest X-Ray 02/14/18 16:43 IMPRESSION: COPD. NO ACUTE RADIOGRAPHIC FINDING IN THE CHEST. Abdomen/Pelvis CT 02/14/18 16:56 IMPRESSION: 1. No acute findings. 2. Fatty infiltration of the liver. 3. Nonobstructing right nephrolithiasis. Assessment & Plan - Diagnosis (1) Chest pain Qualifiers: Chest pain type: unspecified Qualified Code(s): R07.9 - Chest pain, unspecified Is this a current diagnosis for this admission?: Yes (2) Elevated troponin Is this a current diagnosis for this admission?: Yes (3) HTN (hypertension) Qualifiers: Hypertension type: essential hypertension Qualified Code(s): I10 - Essential (primary) hypertension Is this a current diagnosis for this admission?: Yes (4) HLD (hyperlipidemia) Is this a current diagnosis for this admission?: Yes (5) GERD (gastroesophageal reflux disease) Qualifiers: Esophagitis presence: esophagitis presence not specified Qualified Code(s) : K21.9 - Gastro-esophageal reflux disease without esophagitis Is this a current diagnosis for this admission?: Yes (6) IBS (irritable bowel syndrome) Qualifiers: Irritable bowel syndrome type: with diarrhea Qualified Code(s): K58.0 - Irritable bowel syndrome with diarrhea Is this a current diagnosis for this admission?: Yes - Notes Notes: NST and ECHOCARDIOGRAM Chest pain: Patient has indeterminate troponin I. Patient does have risk factors of hypertension, hyperlipidemia and is also elderly. There is at least intermediate probability that she may have underlying CAD. Agree with nuclear stress test being scheduled. A 2D echocardiogram will also be ordered. So far continue current management plans. Troponin I elevation: These are in the intermediate range. Patient did have minor EKG changes on admission. Evaluate this further with his stress test and 2D echocardiogram. Dyslipidemia: Continue statin therapy. Gastroesophageal reflux: This is in the differential diagnosis for chest pain. Continue with proton pump inhibitor. Irritable bowel syndrome. Patient being treated for this condition. Patient to report any further problems. - Time Time Spent: 30 to 50 Minutes - CODE STATUS was discussed, patient remains full code. Multiple medical problems were addressed. More than 50% of the time spent coordinating care, discussing management plans with involved caregivers. Management plans discussed with involved personnels. Medical decision making was of moderate to high complexity, patient's has multiple comorbidities. Medications reviewed and adjusted accordingly: Yes
--- NOTE | 2018-02-17 09:33 | EKG REPORT ---
SEVERITY:- NORMAL ECG - SINUS RHYTHM : Confirmed by: Héctor Chaudhari 17-Feb-2018 09:31:44
[2018-02-17] MEDS: ESCITALOPRAM OXALATE 10 MG TABLET PO SCH (10:03)
[2018-02-17] MEDS: ATENOLOL 50 MG TABLET PO SCH (10:03)
[2018-02-17] MEDS: ASPIRIN 81 MG TABLET, ENT COATED PO SCH (10:03)
[2018-02-17] MEDS: LANSOPRAZOLE 30 MG TAB.RAP.DR PO SCH ×2 (10:03→17:33)
[2018-02-17] MEDS ORDERED: POTASSI CL 20 MEQ/50 ML RIDER 20 MEQ/50 ML RTUPB IV ONE (10:30)
[2018-02-17] MEDS ORDERED: POTASSIUM CHLORIDE 10 MEQ TABLET.SA PO ONE (10:30)
--- NOTE | 2018-02-17 12:41 | DRAGON STRESS TEST REPORT ---
INTRAVENOUS LEXISCAN CARDIOLITE STRESS TEST USING SINGLE PHOTON EMMISION COMPUTERIZED TOMOGRAPHIC. DATE OF PROCEDURE: February 17, 2018, INDICATION : Chest pain CARDIAC RISK FACTORS: Hypertension, dyslipidemia RESTING EKG: Sinus rhythm, no baseline ST-T wave changes noted STRESS EKG: No significant ST segment changes noted with LexiScan bolus REASON FOR TERMINATION: Protocol. PROCEDURE REPORT: Baseline heart rate 79 beats per minute with blood pressure of 154/84. Patient had no significant complaints. Patient was bolused with Lexiscan 0.4 mg intravenously followed by saline bolus. Heart rate at 2 minutes post bolus 101 with a blood pressure of 184/70. 3 minutes post bolus heart rate 113 with blood pressure of 180/81. No significant EKG changes were noted. Patient had no significant complaints during the procedure or postprocedure. Patient injected with Aminophyllin 75 mg at 3 minutes or later after Lexiscan bolus. CONCLUSIONS: Normal EKG and hemodynamic response to IV LexiScan. NUCLEAR DATA: At rest the patient was given 11.83 millicuries of technetium 99 sestamibi injected intravenously. As per protocol rest gated SPECT images were obtained. On day of stress test, the patient was given intravenous LexiScan at a dose of 0.4 mg in 5 mL intravenously, followed by flush with normal saline. Subsequently the stress dose of 31.8 millicuries of technetium 99 sestamibi was injected intravenously. As per protocol stress gated images were obtained. NUCLEAR INTERPRETATION: Both raw and processed data were used for interpretation. Visual, qualitative, computer-generated quantitative data was used. There was good myocardial uptake of technetium compound. Motion artifact and soft tissue attenuations were noted. Increased visceral uptake was noted. No definitive areas of transient perfusion defect noted, No definitive areas of fixed perfusion defect or scars noted. EKG gated imaging showed LV EF at 66 %, rest and stress gated EF similar visually. T. I D. ratio was 0.96. Lung heart ratio noted to be within normal limits 0.25. No significant extracardiac and abnormal radiotracer activities were noted. RV free wall uptake was noted to be WNL. IMPRESSION: Also refer to comments under nuclear interpretation. Also test results needs to be interpreted in the context of pretest probability. 1. No definitive areas of transient perfusion defect noted. 2. There is no definitive scintigraphic evidence of myocardial infarction/scar. 3. EKG gated imaging shows left ventricular ejection fraction of approx. 66 %. 4. Clinical correlation requested as occasionally single vessel disease or balanced ischemia could be missed. In approximately 10% of the cases Lexiscan may not cause adequate vasodilatory stress. RECOMMENDATIONS: Aggressive risk factor modification and medical management. Further evaluation may be needed if continued symptoms or other high risk indicators are noted on clinical evaluation. Close cardiology follow-up is also recommended. Clinical correlation with echocardiogram derived ejection fraction. Inability to exercise by itself can lead to increased cardiovascular event risks. Consider cardiology consultation and or follow-up if clinically indicated. I am available for cardiology evaluation and consultation if requested by the quality assurance assistant, unless patient already has a activities coordinator. HERBIE
[2018-02-17 14:27] LABS: APPEARANCE,URINE CLEAR; BILIRUBIN,URINE NEGATIVE (NEGATIVE); COLOR,URINE YELLOW; GLUCOSE, URINE NEGATIVE (NEGATIVE); KETONES,URINE NEGATIVE (NEGATIVE); LEUKOCYTE ESTERASE,URINE TRACE (NEGATIVE); NITRITE,URINE NEGATIVE (NEGATIVE); PROTEIN,URINE NEGATIVE (NEGATIVE); URINE SPECIFIC GRAVITY 1.008; UROBILINOGEN,URINE NEGATIVE mg/dL (<2.0)
[2018-02-17] MEDS ORDERED: REGADENOSON INJ 0.4 MG/5 ML DISP.SYRIN IV ONE (14:31)
[2018-02-17] MEDS ORDERED: AMINOPHYLLINE INJ/PF 250 MG/10 ML SDV IV ONE (14:31)
--- NOTE | 2018-02-17 18:48 | PDOC PROGRESS REPORT ---
Subjective Progress Note for:: 02/17/18 Subjective:: YVROSE CHAN is a 62 year old female admitted for nausea and vomiting and diarrhea. Patient reports she was experiencing diarrhea for approximately 1 week prior to admission, she presented to the emergency department when she began developing vomiting. CT of the abdomen unremarkable. Patient seen this morning on rounds, she denies abdominal pain, fever or chills. She endorses multiple loose liquid stools, approximately 4-6 per day. Reason For Visit: CHEST PAIN HTN TACHYCARDIA ANXIETY IBS Physical Exam Vital Signs: Temp Pulse Resp BP Pulse Ox 98.1 F 81 16 141/69 H 96 02/17/18 16:04 02/17/18 16:04 02/17/18 16:04 02/17/18 16:04 02/17/18 16:04 Intake & Output 02/16/18 02/17/18 02/18/18 06:59 06:59 06:59 Intake Total 175 2524 1269 Output Total 50 200 Balance 175 2474 1069 Weight 79.5 kg 79.5 kg General appearance: PRESENT: no acute distress Head exam: PRESENT: atraumatic Eye exam: PRESENT: conjunctiva pink Mouth exam: PRESENT: moist Respiratory exam: PRESENT: clear to auscultation caroline, symmetrical, unlabored Cardiovascular exam: PRESENT: +S1, +S2 Pulses: PRESENT: normal radial pulses, normal dorsalis pedis pul GI/Abdominal exam: PRESENT: normal bowel sounds, soft. ABSENT: tenderness Rectal exam: PRESENT: deferred Extremities exam: PRESENT: full ROM Musculoskeletal exam: PRESENT: ambulatory, full ROM Neurological exam: PRESENT: alert, awake, oriented to person, oriented to place , oriented to time, oriented to situation Psychiatric exam: PRESENT: appropriate affect Skin exam: PRESENT: normal color Results Laboratory Results: 02/17/18 08:38 02/17/18 08:38 02/17/18 02/17/18 02/17/18 08:38 08:38 12:15 WBC 5.2 RBC 3.75 Hgb 12.0 Hct 34.4 L MCV 92 MCH 32.0 MCHC 34.9 RDW 11.9 Plt Count 157 Seg Neutrophils % 66.5 Lymphocytes % 23.9 Monocytes % 9.1 Eosinophils % 0.0 Basophils % 0.5 Absolute Neutrophils 3.5 Absolute Lymphocytes 1.3 Absolute Monocytes 0.5 Absolute Eosinophils 0.0 Absolute Basophils 0.0 Sodium 138.9 Potassium 3.0 L* Chloride 104 Carbon Dioxide 25 Anion Gap 10 BUN 3 L Creatinine 0.42 L Est GFR ( Amer) > 60 Est GFR (Non-Af Amer) > 60 Glucose 90 Calcium 8.3 L Phosphorus 2.7 Magnesium 1.6 Urine Color YELLOW Urine Appearance CLEAR Urine pH 7.0 Ur Specific [place] 1.008 Urine Protein NEGATIVE Urine Glucose (UA) NEGATIVE Urine Ketones NEGATIVE Urine Blood NEGATIVE Urine Nitrite NEGATIVE Ur Leukocyte Esterase TRACE H Urine WBC (Auto) 20 Urine RBC (Auto) 7 02/15/18 02/15/18 05:48 05:48 Creatine Kinase 66 CK-MB (CK-2) 0.25 Troponin I 0.022 Impressions: Chest X-Ray 02/14/18 16:43 IMPRESSION: COPD. NO ACUTE RADIOGRAPHIC FINDING IN THE CHEST. Abdomen/Pelvis CT 02/14/18 16:56 IMPRESSION: 1. No acute findings. 2. Fatty infiltration of the liver. 3. Nonobstructing right nephrolithiasis. Status: Imported from PACS Assessment & Plan - Diagnosis (1) Gastroenteritis Is this a current diagnosis for this admission?: Yes Plan: Patient presented with approximately 1 week of nausea vomiting diarrhea. At this time, the nausea and vomiting has resolved. However, the patient endorses 4-6 episodes of liquid stool per day. Hemoccult negative. C. difficile negative. Rare WBC found in stool - benign finding. I do not believe that this case of diarrhea is caused by a foodborne contamination - such as e.coli, given the persistent nature of the diarrhea. It is possible that this patient has norovirus. Re-sent stool sample today. Patient denies taking any new medications. Denies ill contacts. CT abdomen and pelvis benign. Continue supportive care with normal saline 100ml/hr Advance clear liquid diet. (2) Atypical chest pain Is this a current diagnosis for this admission?: Yes Plan: Patient reported experiencing chest pain upon arrival. EKG normal. Serial cardiac enzymes benign. Patient was chest pain-free for greater than 24 hours, however, began experiencing chest pain again while undergoing her stress test yesterday. Cardiology has been consulted. Stress test completed today without complication - no abnormalities. Continue aspirin therapy. PRN SL Nitro for chest pain - Time Time Spent with patient: 15-24 minutes Anticipated discharge: Home Within: within 24 hours - Inpatient Certification Based on my medical assessment, after consideration of the patient's comorbidities, presenting symptoms, or acuity I expect that the services needed warrant INPATIENT care.: Yes I certify that my determination is in accordance with my understanding of Medicare's requirements for reasonable and necessary INPATIENT services [42 CFR 412.3e].: Yes Medical Necessity: Need For IV Fluids, Risk of Complication if Not Cared For in Hospital - Plan Summary Plan Summary: Ultimately, the plan is to discharge the patient home
[2018-02-17] MEDS: ACETAMINOPHEN 325 MG TABLET PO PRN (21:31)
[2018-02-17] MEDS: ATORVASTATIN CALCIUM 10 MG TABLET PO SCH (21:31)
[2018-02-17] MEDS: PHENAZOPYRIDINE HCL 100 MG TABLET PO SCH (21:57)
[2018-02-18] MEDS: NORMAL SALINE 1000 ML 1,000 ML IV PRN (03:15)
[2018-02-18] MEDS: HEPARIN SOD (PORCINE) 5,000 UNIT/ML 1 ML SYRINGE SUBCUT SCH ×2 (05:03→13:32)
[2018-02-18] MEDS: PHENAZOPYRIDINE HCL 100 MG TABLET PO SCH ×2 (05:29→13:32)
[2018-02-18] MEDS: ACETAMINOPHEN 325 MG TABLET PO PRN (08:43)
[2018-02-18] MEDS: ESCITALOPRAM OXALATE 10 MG TABLET PO SCH (10:25)
[2018-02-18] MEDS: ATENOLOL 50 MG TABLET PO SCH (10:25)
[2018-02-18] MEDS: ASPIRIN 81 MG TABLET, ENT COATED PO SCH (10:25)
[2018-02-18] MEDS: LANSOPRAZOLE 30 MG TAB.RAP.DR PO SCH (10:25)
[2018-02-18 11:26] LABS: ANION GAP 9 (5-19); BLOOD UREA NITROGEN 5 mg/dL (7-20); CARBON DIOXIDE 29 mmol/L (22-30); CHLORIDE 103 mmol/L (98-107); GLUCOSE 97 mg/dL (75-110); POTASSIUM 3.4 mmol/L (3.6-5.0); SODIUM 141.4 mmol/L (137-145)
[2018-02-18] MEDS ORDERED: POTASSIUM CHLORIDE 20 MEQ/15 ML UDCUP PO ONE (12:29)
--- NOTE | 2018-02-18 12:39 | PDOC PROGRESS REPORT ---
Subjective Progress Note for:: 02/17/18 Subjective:: Patient seems to be doing better. No recurrence of chest pain. Pt is denying any chest arm or neck discomfort. Patient denying any PND, orthopnea. Patient denied any sustained palpitations, dizziness, syncope, near syncope. Patient denying any fever chills. Patient denying any other significant discomfort. Patient is maintaining sinus rhythm. Nuclear stress test procedure explained to the patient in detail. Risk benefits were discussed. Review of systems: Rest review of systems negative. Medications: Medications have been reviewed. Reason For Visit: CHEST PAIN HTN TACHYCARDIA ANXIETY IBS Physical Exam Vital Signs: Temp Pulse Resp BP Pulse Ox 98.1 F 81 16 141/69 H 96 02/17/18 16:04 02/17/18 16:04 02/17/18 16:04 02/17/18 16:04 02/17/18 16:04 Intake & Output 02/16/18 02/17/18 02/18/18 06:59 06:59 06:59 Intake Total 175 2524 1269 Output Total 50 200 Balance 175 2474 1069 Weight 79.5 kg 79.5 kg Exam: GENERAL: well-nourished and in no acute distress. Alert and oriented x3 HEAD: Atraumatic, normocephalic. EYES: Pupils equal round and reactive to light, extraocular movements intact, sclera anicteric, conjunctiva are normal. ENT: TMs normal, nares patent, oropharynx clear without exudates. Moist mucous membranes. No oral ulcerations or bleeding gums noted NECK: supple without lymphadenopathy. Trachea is central. No cervical or axillary lymphadenopathy noted. Carotids are 2+, JVD WNL LUNGS: Respiration seems nonlabored, no significant accessory muscle action noted. Breath sounds clear to auscultation bilaterally and equal noted. No wheezes rales or rhonchi noted. No significant dullness noted on percussion. CHEST: Palpation of the chest wall shows no significant chest wall tenderness. No other significant abnormalities noted. 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 ABDOMEN: Soft, no significant tenderness appreciated, normoactive bowel sounds. No guarding, no rebound. No rigidity noted . No masses appreciated. EXTREMITIES: Pedal pulses are 1-2+, no calf tenderness noted. No clubbing or cyanosis.trace to 1+ pedal edema noted NEUROLOGICAL: Focused neurological exam showed no significant neurologic deficit. Normal speech, no focal weakness appreciated. PSYCH: Normal mood, normal affect. Judgment and insight within normal limits. SKIN: No significant ecchymosis, skin is noted to be warm. MUSCULOSKELETAL EXAM: No significant acute joint swelling noted. Results Laboratory Results: 02/17/18 08:38 02/17/18 08:38 02/17/18 02/17/18 02/17/18 08:38 08:38 12:15 WBC 5.2 RBC 3.75 Hgb 12.0 Hct 34.4 L MCV 92 MCH 32.0 MCHC 34.9 RDW 11.9 Plt Count 157 Seg Neutrophils % 66.5 Lymphocytes % 23.9 Monocytes % 9.1 Eosinophils % 0.0 Basophils % 0.5 Absolute Neutrophils 3.5 Absolute Lymphocytes 1.3 Absolute Monocytes 0.5 Absolute Eosinophils 0.0 Absolute Basophils 0.0 Sodium 138.9 Potassium 3.0 L* Chloride 104 Carbon Dioxide 25 Anion Gap 10 BUN 3 L Creatinine 0.42 L Est GFR ( Amer) > 60 Est GFR (Non-Af Amer) > 60 Glucose 90 Calcium 8.3 L Phosphorus 2.7 Magnesium 1.6 Urine Color YELLOW Urine Appearance CLEAR Urine pH 7.0 Ur Specific [place] 1.008 Urine Protein NEGATIVE Urine Glucose (UA) NEGATIVE Urine Ketones NEGATIVE Urine Blood NEGATIVE Urine Nitrite NEGATIVE Ur Leukocyte Esterase TRACE H Urine WBC (Auto) 20 Urine RBC (Auto) 7 02/15/18 02/15/18 05:48 05:48 Creatine Kinase 66 CK-MB (CK-2) 0.25 Troponin I 0.022 Impressions: Chest X-Ray 02/14/18 16:43 IMPRESSION: COPD. NO ACUTE RADIOGRAPHIC FINDING IN THE CHEST. Abdomen/Pelvis CT 02/14/18 16:56 IMPRESSION: 1. No acute findings. 2. Fatty infiltration of the liver. 3. Nonobstructing right nephrolithiasis. Assessment & Plan - Diagnosis (1) Chest pain Qualifiers: Chest pain type: unspecified Qualified Code(s): R07.9 - Chest pain, unspecified Is this a current diagnosis for this admission?: Yes (2) Elevated troponin Is this a current diagnosis for this admission?: Yes (3) HTN (hypertension) Qualifiers: Hypertension type: essential hypertension Qualified Code(s): I10 - Essential (primary) hypertension Is this a current diagnosis for this admission?: Yes (4) HLD (hyperlipidemia) Is this a current diagnosis for this admission?: Yes (5) GERD (gastroesophageal reflux disease) Qualifiers: Esophagitis presence: esophagitis presence not specified Qualified Code(s) : K21.9 - Gastro-esophageal reflux disease without esophagitis Is this a current diagnosis for this admission?: Yes (6) IBS (irritable bowel syndrome) Qualifiers: Irritable bowel syndrome type: with diarrhea Qualified Code(s): K58.0 - Irritable bowel syndrome with diarrhea Is this a current diagnosis for this admission?: Yes - Notes Notes: Patient claims chest pain is improved. This was evaluated with a nuclear stress test. Nuclear stress test was negative for any significant areas of ischemia or any significant areas of scar. The nuclear stress test is felt to be relatively low risk. Patient informed that occasionally single-vessel disease and balanced ischemia could be missed. Patient advised aggressive risk factor modification and medical therapy. Patient informed that further evaluation may become necessary if symptoms worsens or there is a development of new symptoms indicative of angina or angina equivalent symptom. Troponin I elevation: These are in the intermediate range. Patient did have minor EKG changes on admission. EKG changes were rate related based on nuclear stress results. Feel that troponin I elevation could just be from nausea vomiting etc. possibly tachycardia related. Dyslipidemia: Continue statin therapy. Gastroesophageal reflux: This is in the differential diagnosis for chest pain. Continue with proton pump inhibitor. Irritable bowel syndrome. Patient being treated for this condition. Patient to report any further problems. 2D echocardiogram is pending at the time of this dictation. - Time Time Spent with patient: Patient was seen multiple times. Total time exceeds 40 minutes. In the morning nuclear stress test procedure, risks benefits, alternatives were discussed. Patient seen during the stress test. Patient also seen after stress test when results were discussed with the patient in detail. Patient's questions were answered. Nuclear stress test results were discussed with the patient. Patient was informed that no definitive evidence of pharmacologic stress- induced ischemia noted. No definite fixed defects were noted. Patient informed that occasionally significant single vessel disease or balanced ischemia could be missed. However based on the current study results, would recommend aggressive risk factor modification and medical therapy. It may also be worthwhile to consider evaluation or empiric management of other causes of chest pain. Should no other cause be found and if persistent in having chest pain, then cardiac catheterization should be considered. Right now, recommendations are for aggressive risk factor modification and medical management. Time with patient: Greater than 35 minutes - More than 50% of the time spent coordinating care, discussing management plans with involved caregivers. Management plans discussed with involved personnels. Medical decision making was of moderate to high complexity, patient's has multiple comorbidities. Medications reviewed and adjusted accordingly: Yes
--- NOTE | 2018-02-18 13:18 | XCELERA REPORT ---
[address] [address] Transthoracic Echocardiogram Report Name: YVROSE CHAN Age: 62 yrs Gender: Female : 1955 Patient Status: Inpatient Patient Location: [address] [place] [address] Study Date: 02/18/2018 07:39 AM Height: 65 in Weight: 175 lb BSA: 1.9 m2 Procedure: A complete two-dimensional transthoracic echocardiogram was performed (2D, M-mode, spectral and color flow Doppler). The study was technically adequate with some images being suboptimal in quality. Reason For Study: chest pain Ordering Physician: LANDRY DIAZ Performed By: Scarlett Omer Interpretation Summary The left ventricular ejection fraction is normal. There is borderline concentric left ventricular hypertrophy. The left ventricle is grossly normal size. Doppler measurements suggest normal left ventricular diastolic function No regional wall motion abnormalities noted. The right ventricular systolic function is normal. The left atrium is mildly dilated. The right atrium is normal. There is a mild to moderate amount of mitral regurgitation There is no mitral valve stenosis. There is no aortic valve stenosis No aortic regurgitation is present. There is a trace to mild amount of tricuspid regurgitation Right ventricular systolic pressure is at the upper limits of normal The aortic root is not well visualized but is probably normal size. The inferior vena cava appeared normal and decreased > 50% with respiration (RAP 5-10 mmHg) There is no pericardial effusion. MMode/2D Measurements & Calculations RVDd: 2.9 cm LVIDd: 4.5 cm FS: 36.1 % Ao root diam: 2.3 cm IVSd: 0.95 cm LVIDs: 2.9 cm EDV(Teich): 92.6 ml LVPWd: 0.97 cm ESV(Teich): 31.5 ml Ao root area: 4.1 cm2 EF(Teich): 65.9 % Doppler Measurements & Calculations MV E max anup: MV dec slope: Ao V2 max: LV V1 max P.6 cm/sec 139.1 cm/sec 5.3 mmHg MV A max anup: 416.8 cm/sec2 Ao max PG: LV V1 max: 75.5 cm/sec MV dec time: 7.7 mmHg 114.9 cm/sec MV E/A: 1.3 0.24 sec MR max anup: PA V2 max: TR max anup: 638.3 cm/sec 96.8 cm/sec 234.8 cm/sec MR max PG: PA max P.8 mmHg TR max P.0 mmHg 22.3 mmHg Left Ventricle The left ventricle is grossly normal size. There is borderline concentric left ventricular hypertrophy. The left ventricular ejection fraction is normal. Doppler measurements suggest normal left ventricular diastolic function. No regional wall motion abnormalities noted. Right Ventricle The right ventricle is grossly normal size. There is normal right ventricular wall thickness. The right ventricular systolic function is normal. Atria The right atrium is normal. The left atrium is mildly dilated. Interarterial septum not well visualized and not well dopplered. Cannot comment on ASD/PFO presence. Mitral Valve The mitral valve leaflets are sclerotic, but show no functional abnormalities. There is no mitral valve stenosis. There is a mild to moderate amount of mitral regurgitation. Aortic Valve The aortic valve is grossly normal. There is no aortic valve stenosis. No aortic regurgitation is present. Tricuspid Valve The tricuspid valve is not well visualized, but is grossly normal. There is no tricuspid stenosis. There is a trace to mild amount of tricuspid regurgitation. Right ventricular systolic pressure is at the upper limits of normal. Pulmonic Valve The pulmonic valve is not well visualized. Great Vessels The aortic root is not well visualized but is probably normal size. The inferior vena cava appeared normal and decreased > 50% with respiration (RAP 5-10 mmHg). Effusions There is no pericardial effusion. : LANDRY DIAZ > Héctor Chaudhari
[2018-02-18 14:22] VITALS: BP 134/65
--- NOTE | 2018-02-18 18:50 | PDOC PROGRESS REPORT ---
Subjective Progress Note for:: 02/18/18 Subjective:: Nuclear stress test results were again reviewed with the patient. 2D echo results were discussed. Patient seems to be doing better. No recurrence of chest pain. Pt is denying any chest arm or neck discomfort. Patient denying any PND, orthopnea. Patient denied any sustained palpitations, dizziness, syncope, near syncope. Patient denying any fever chills. Patient denying any other significant discomfort. Patient is maintaining sinus rhythm. Nuclear stress test procedure explained to the patient in detail. Risk benefits were discussed. Review of systems: Rest review of systems negative. Medications: Medications have been reviewed. Reason For Visit: CHEST PAIN HTN TACHYCARDIA ANXIETY IBS Physical Exam Vital Signs: Temp Pulse Resp BP Pulse Ox 98.0 F 83 16 134/65 H 96 02/18/18 14:20 02/18/18 14:20 02/18/18 14:20 02/18/18 14:20 02/18/18 14:20 Intake & Output 02/17/18 02/18/18 02/19/18 06:59 06:59 06:59 Intake Total 2524 3529 Output Total 50 200 Balance 2474 3329 Weight 79.5 kg 79.5 kg Exam: GENERAL: well-nourished and in no acute distress. Alert and oriented x3 HEAD: Atraumatic, normocephalic. EYES: Pupils equal round and reactive to light, extraocular movements intact, sclera anicteric, conjunctiva are normal. ENT: TMs normal, nares patent, oropharynx clear without exudates. Moist mucous membranes. No oral ulcerations or bleeding gums noted NECK: supple without lymphadenopathy. Trachea is central. No cervical or axillary lymphadenopathy noted. Carotids are 2+, JVD WNL LUNGS: Respiration seems nonlabored, no significant accessory muscle action noted. Breath sounds clear to auscultation bilaterally and equal noted. No wheezes rales or rhonchi noted. No significant dullness noted on percussion. CHEST: Palpation of the chest wall shows no significant chest wall tenderness. No other significant abnormalities noted. 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 ABDOMEN: Soft, no significant tenderness appreciated, normoactive bowel sounds. No guarding, no rebound. No rigidity noted . No masses appreciated. EXTREMITIES: Pedal pulses are 1-2+, no calf tenderness noted. No clubbing or cyanosis.trace to 1+ pedal edema noted NEUROLOGICAL: Focused neurological exam showed no significant neurologic deficit. Normal speech, no focal weakness appreciated. PSYCH: Normal mood, normal affect. Judgment and insight within normal limits. SKIN: No significant ecchymosis, skin is noted to be warm. MUSCULOSKELETAL EXAM: No significant acute joint swelling noted. Results Laboratory Results: 02/17/18 08:38 02/18/18 10:58 02/18/18 10:58 Sodium 141.4 Potassium 3.4 L Chloride 103 Carbon Dioxide 29 Anion Gap 9 BUN 5 L Creatinine 0.43 L Est GFR ( Amer) > 60 Est GFR (Non-Af Amer) > 60 Glucose 97 Calcium 9.0 Phosphorus 3.0 Magnesium 1.6 02/15/18 02/15/18 05:48 05:48 Creatine Kinase 66 CK-MB (CK-2) 0.25 Troponin I 0.022 Impressions: Chest X-Ray 02/14/18 16:43 IMPRESSION: COPD. NO ACUTE RADIOGRAPHIC FINDING IN THE CHEST. Abdomen/Pelvis CT 02/14/18 16:56 IMPRESSION: 1. No acute findings. 2. Fatty infiltration of the liver. 3. Nonobstructing right nephrolithiasis. Assessment & Plan - Diagnosis (1) Chest pain Qualifiers: Chest pain type: unspecified Qualified Code(s): R07.9 - Chest pain, unspecified Is this a current diagnosis for this admission?: Yes (2) Elevated troponin Is this a current diagnosis for this admission?: Yes (3) HTN (hypertension) Qualifiers: Hypertension type: essential hypertension Qualified Code(s): I10 - Essential (primary) hypertension Is this a current diagnosis for this admission?: Yes (4) HLD (hyperlipidemia) Is this a current diagnosis for this admission?: Yes (5) GERD (gastroesophageal reflux disease) Qualifiers: Esophagitis presence: esophagitis presence not specified Qualified Code(s) : K21.9 - Gastro-esophageal reflux disease without esophagitis Is this a current diagnosis for this admission?: Yes (6) IBS (irritable bowel syndrome) Qualifiers: Irritable bowel syndrome type: with diarrhea Qualified Code(s): K58.0 - Irritable bowel syndrome with diarrhea Is this a current diagnosis for this admission?: Yes - Notes Notes: Chest pain: [place] to be noncardiac. Patient to report any recurrence of chest pain. Troponin I: Elevation felt to be related to supply demand mismatch. Hypertension: This is under satisfactory control. Dyslipidemia: Continue current statin therapy. Gastroesophageal reflux: Continue current management plans. Irritable bowel syndrome: Currently stable. 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 Patient given my card. - Time Time with patient: 15-25 minutes - CODE STATUS was discussed, patient remains full code. More than 50% of the time spent coordinating care, discussing management plans with involved caregivers. Management plans discussed with involved personnels. Medical decision making was of moderate to high complexity , patient's has multiple comorbidities. Medications reviewed and adjusted accordingly: Yes
--- NOTE | 2018-02-27 15:20 | PDOC DISCHARGE SUMMARY ---
General - Admit/Disc Date/PCP Admission Date/Primary Care Provider: 02/14/18 20:51 Discharge Date: 02/18/18 - Discharge Diagnosis (1) Gastroenteritis Is this a current diagnosis for this admission?: Yes Summary: Patient presented with approximately 1 week of nausea vomiting diarrhea. Nausea and vomiting has resolved following IVF and antiemetics. Patient endorses 4-6 episodes of liquid stool per day. Hemoccult negative. C. difficile negative. Rare WBC found in stool - benign finding. Foodborne contamination - such as e.coli, less likely given the persistent nature of diarrhea (>7days). It is possible that this patient has norovirus. Stool sample sent, but this particular lab is send out. Since patient's diarrhea resolved, the patient was discharged home prior to lab results. Patient denies taking any new medications. Denies ill contacts. CT abdomen and pelvis benign. Initially treated with supportive care and IVF. Able to advance diet and diarrhea stopped, so patient was discharged home. (2) Atypical chest pain Is this a current diagnosis for this admission?: Yes Summary: Patient reported experiencing chest pain upon arrival. Cardiology consulted. EKG normal. Serial cardiac enzymes benign. Patient was chest pain-free for greater than 24 hours, however, began experiencing chest pain again while undergoing her stress test. Stress test completed the following day without complication - no abnormalities. ECHOcardiogram benign. Initiated aspirin therapy and continued post discharge. Discharged home with PRN SL Nitro for chest pain (3) Hypokalemia due to loss of potassium Is this a current diagnosis for this admission?: Yes Summary: Secondary to diarrhea. Patient required daily electrolyte replacement. Potassium improved when diarrhea resolved. Patient sent home with potassium supplements, told she could stop taking them when she was no longer experiencing loose stools. - Additional Information Resuscitation Status: Full Code Discharge Diet: As Tolerated Discharge Activity: Activity As Tolerated Prescriptions: Potassium Chloride 20 meq PO DAILY #30 [email or web address] Home Medications: Aspirin [Aspirin EC] 81 mg PO DAILY 02/14/18 Atenolol [Tenormin] 25 mg PO DAILY 02/14/18 Atorvastatin Calcium [Lipitor 10 mg Tablet] 10 mg PO DAILY 02/14/18 Escitalopram Oxalate [Lexapro 10 mg Tablet] 10 mg PO DAILY 02/14/18 Hyoscyamine Sulfate [Hyoscyamine Sulfate ER] 0.75 mg PO DAILY 02/14/18 Multivit with Iron,Minerals [Spectravite Senior] 1 tab PO DAILY 02/14/18 Prochlorperazine Maleate [Compazine] 20 mg PO DAILYP PRN 02/14/18 Vit C/Vit E AC/Lut/Copper/Zinc [Preservision Lutein Softgel] 1 cap PO DAILY Potassium Chloride 20 meq PO DAILY #30 [email or web address] 02/18/18 History of Present Illness Patient complains of: nausea and vomiting History of Present Illness: YVROSE CHAN is a 62 year old female with a past medical history of anxiety, irritable bowel syndrome, hypertension and dyslipidemia. Patient presents following 1 week of nausea vomiting of gastric content, diarrhea without blood and fatigue. Patient denies suspect meals or infectious contacts, no episodes of either while in the emergency room. Patient has an unremarkable workup then reveals left-sided chest pain which is reproducible to palpation of the chest wall, cardiac workup is unremarkable but she is referred to the hospitalist for evaluation given cardiac risks. Patient states her chest pain is dull in nature and reproduced by rubbing the chest wall, no palpitations, diaphoresis or shortness of breath. It is achy in nature and nonradiating with a 2 out of 5 intensity. Patient denies alleviating factors. She denies cardiac stress testing. Hospital Course Hospital Course: as above Physical Exam Vital Signs: Temp Pulse Resp BP Pulse Ox 98.0 F 83 16 134/65 H 96 02/18/18 14:20 02/18/18 14:20 02/18/18 14:20 02/18/18 14:20 02/18/18 14:20 General appearance: PRESENT: no acute distress, well-developed, well-nourished Head exam: PRESENT: atraumatic, normocephalic Eye exam: PRESENT: conjunctiva pink, EOMI, PERRLA. ABSENT: scleral icterus Ear exam: PRESENT: normal external ear exam Mouth exam: PRESENT: moist Neck exam: ABSENT: carotid bruit, JVD, lymphadenopathy, thyromegaly Respiratory exam: PRESENT: clear to auscultation caroline, symmetrical, unlabored. ABSENT: rales, rhonchi, wheezes Cardiovascular exam: PRESENT: RRR. ABSENT: diastolic murmur, rubs, systolic murmur Pulses: PRESENT: normal radial pulses, normal dorsalis pedis pul Vascular exam: PRESENT: normal capillary refill GI/Abdominal exam: PRESENT: normal bowel sounds, soft, other - patient endorses loose/soft stools, but denies diarrhea.. ABSENT: distended, guarding, mass, organolmegaly, rebound, tenderness Rectal exam: PRESENT: deferred Extremities exam: PRESENT: full ROM. ABSENT: calf tenderness, clubbing, pedal edema Musculoskeletal exam: PRESENT: ambulatory, full ROM Neurological exam: PRESENT: alert, awake, oriented to person, oriented to place , oriented to time, oriented to situation Psychiatric exam: PRESENT: appropriate affect Skin exam: PRESENT: dry, intact, warm. ABSENT: cyanosis, rash Results Laboratory Results: 02/17/18 08:38 02/18/18 10:58 02/15/18 02/15/18 05:48 05:48 Creatine Kinase 66 CK-MB (CK-2) 0.25 Troponin I 0.022 Impressions: Chest X-Ray 02/14/18 16:43 IMPRESSION: COPD. NO ACUTE RADIOGRAPHIC FINDING IN THE CHEST. Abdomen/Pelvis CT 02/14/18 16:56 IMPRESSION: 1. No acute findings. 2. Fatty infiltration of the liver. 3. Nonobstructing right nephrolithiasis. Status: Imported from PACS Qualifiers - * [place] BEING DISCHARGED WITH ANY OF THE FOLLOWING DIAGNOSIS?: No Plan Discharge Plan: Discharge home. The importance of hydration was stressed. Patient sent home with prescription for potassium supplements. Told to stop taking them when she no longer had loose stools. Patient stated understanding of discharge instructions. Time Spent: Less than 30 Minutes
== END 2018-02-18 15:10 | disposition home or self-care (01) | DRG 392 ==
LOC: ER 15:16 → EH 20:51 → 4S 02-16 04:00
PROVIDERS: ADMIT Internal Medicine; ATTEND Internal Medicine
DX: K52.9 Noninfective gastroenteritis and colitis, unspecified (principal); I95.9 Hypotension, unspecified; E78.00 Pure hypercholesterolemia, unspecified; I10 Essential (primary) hypertension; F41.9 Anxiety disorder, unspecified; R00.0 Tachycardia, unspecified; J44.9 Chronic obstructive pulmonary disease, unspecified; K21.9 Gastro-esophageal reflux disease without esophagitis; K58.0 Irritable bowel syndrome with diarrhea; N20.0 Calculus of kidney; R07.89 Other chest pain; E87.6 Hypokalemia; Z87.891 Personal history of nicotine dependence; Z79.82 Long term (current) use of aspirin; Z79.899 Other long term (current) drug therapy; Z88.6 Allergy status to analgesic agent; Z88.3 Allergy status to other anti-infective agents; Z83.3 Family history of diabetes mellitus; Z82.49 Family history of ischemic heart disease and other diseases of the circulatory system; Z80.1 Family history of malignant neoplasm of trachea, bronchus and lung
CPT/HCPCS: 36415; 51701; 71045; 74177; 78452; 80048; 80053; 80061; 81001; 82272; 82550; 82553; 83036; 83690; 83735; 84100; 84443; 84484; 85025; 87040; 87493; 87798; 89055; 93005; 93010; 93017; 93306; 96361; 96374; 96375; 99285; A9500; J0280; J1644; J2405; J2785; J3480; J3490; J7030; Q9969

== ENCOUNTER → 2018-03-25 | Outpatient (CLI) | payer OTHER ==
[2018-03-25 11:29] LABS: ANION GAP 12 (5-19); BLOOD UREA NITROGEN 18 mg/dL (7-20); CALCIUM 9.7 mg/dL (8.4-10.2); CARBON DIOXIDE 29 mmol/L (22-30); CHLORIDE 104 mmol/L (98-107); GLUCOSE 96 mg/dL (75-110); POTASSIUM 4.5 mmol/L (3.6-5.0); SODIUM 144.6 mmol/L (137-145)
== END ==
LOC: OD 10:11
PROVIDERS: ATTEND Internal Medicine Geriatric Medicine
DX: E87.6 Hypokalemia (principal)
CPT/HCPCS: 36415; 80048

== ENCOUNTER → 2019-06-24 | Outpatient (CLI) | payer OTHER | LOC: WI 08:46 | PROVIDERS: ATTEND Internal Medicine Geriatric Medicine | DX: Z12.31 Encounter for screening mammogram for malignant neoplasm of breast (principal) | CPT/HCPCS: 77063; 77067 ==